=== PATIENT | female | born 1990 | race Caucasian/White ===

== ENCOUNTER 2023-10-02 20:00 | Emergency (ER) | payer BC, SELFPAY ==
[2023-10-02 20:10] VITALS: BP 155/95; PULSE 88; RESP 18; TEMP 36.2; O2SAT 97; BMI 37.8
--- NOTE | 2023-10-02 21:09 | ED_ITS ---
HPI - Neck Pain/Injury General Chief Complaint: Neck Injury/Pain Stated Complaint: neck and eye pain Time Seen by Provider: 10/02/23 20:41 History of Present Illness HPI Narrative: This 33-year-old female comes in reporting neck pain over the past 3 or 4 days. She does not report any injury event or strenuous activity. She states that she has had neck pain in the past and often has occipital tension type headaches. She also reports some tingling sensation extending into both arms and around her anterior neck. Related Data Home Medications Medication Instructions Recorded Confirmed amlodipine 5 mg tablet 5 mg PO DAILY 05/01/23 05/01/23 dextroamphetamine-amphetamine 20 1 tab PO DAILY 05/01/23 05/01/23 mg tablet dextroamphetamine-amphetamine 30 1 tab PO DAILY 05/01/23 05/01/23 mg tablet diclofenac sodium 1 % topical gel 1 ea topical QID 05/01/23 05/01/23 duloxetine 60 mg capsule,delayed 120 mg PO DAILY 05/01/23 05/01/23 release ferrous sulfate 325 mg (65 mg 325 mg PO DAILY 05/01/23 05/01/23 iron) tablet (FeroSul) hydroxyzine HCl 25 mg tablet 25 mg PO BID 05/01/23 05/01/23 metoprolol succinate 50 mg 50 mg PO DAILY 05/01/23 05/01/23 tablet,extended release 24 hr nortriptyline 10 mg capsule 10 mg PO QPM 05/01/23 05/01/23 valacyclovir 1 gram tablet 4,000 mg PO ONCE 05/01/23 05/01/23 Previous Rx's Medication Instructions Recorded methylprednisolone 4 mg tablets in See Rx Instructions PO .COMPLEX 10/02/23 a dose pack (Medrol (Jarrett)) #21 ea Allergies Allergy/AdvReac Type Severity Reaction Status Date / Time No Known Drug Allergies Allergy Verified 05/01/23 14:34 Review of Systems Status of ROS: Reports: 10 or more systems reviewed and unremarkable except as noted in History and below Narrative: Constitutional: No fevers, no weight gain or loss. Eyes: No discharge. No vision changes. HENT: No congestion, no sore throat, no ear pain. Cardiovascular: No chest pain, no palpitations. Respiratory: No shortness of breath, no wheezes, no cough. Gastrointestinal: No abdominal pain, no vomiting, no diarrhea. Genitourinary: No dysuria, no hematuria. Musculoskeletal: Normal range of motion. Decreased range of motion of her neck due to pain. Skin: No rashes, no pruritis. Neurological: No dizziness, weakness, sensory change, speech change. Endo/Heme/Allergies: No bruising or bleeding. No polydipsia. Pysch: no suicidality, no anxiety, no insomnia. All other systems reviewed and are negative. [facility] Medical History (Updated 10/02/23 @ 21:14 by Christopher Heller MD) Tonsillitis ?J03.90 - Acute tonsillitis, unspecified (ICD-10) Social History Smoking Status: Never smoker How often do you have a drink containing alcohol: 2-4 times a month How often do you have six or more drinks on one occasion: Never AUDIT-C Alcohol total score: 2 Non-prescribed substance use: denies use Exam Narrative: Exam Narrative: Constitutional: Well-developed, well-nourished, no acute distress. HEENT: Normocephalic, atraumatic. Neck: Decreased range of motion. No midline tenderness. Tenderness when palpating on either side of the nuchal ligament just below the occipital skull. Spurling's test is negative. Heart: Intact distal pulses. Lungs: No chest discomfort. No wheezes, rhonchi, or rales. Abdomen: Nontender. Back: Normal range of motion. Extremities: Normal range of motion. No injury. Skin: Intact. No rash. Warm. No erythema or pallor. Neurologic: No altered sensation. No weakness. Alert and oriented. Psychiatric: No suicidality. No anxiety or depression. No insomnia. Nursing notes and vitals signs are reviewed. Const: Vital Signs, click to edit/add: Vital Signs - 24 hr 10/02/23 20:10 Temperature 97.2 F L Pulse Rate [Pulse Oximeter] 88 Respiratory Rate 18 Blood Pressure [Ri ght Upper Arm] 155/95 H Pulse Oximetry 97 Oxygen Delivery Me thod Room Air Course Vital Signs Vital signs: Initial Vital Signs Temperature 97.2 F L 10/02/23 20:10 Temperature Source Temporal Artery Scan 10/02/23 20:10 Pulse Rate 88 10/02/23 20:10 Respiratory Rate 18 10/02/23 20:10 Blood Pressure 155/95 H 10/02/23 20:10 Blood Pressure Mean 115 H 10/02/23 20:10 Pulse Oximetry 97 10/02/23 20:10 Oxygen Delivery Method Room Air 10/02/23 20:10 Vital Signs Temperature 97.2 F L 10/02/23 20:10 Pulse Rate 88 10/02/23 20:10 Respiratory Rate 18 10/02/23 20:10 Blood Pressure 155/95 H 10/02/23 20:10 Pulse Oximetry 97 10/02/23 20:10 Oxygen Delivery Method Room Air 10/02/23 20:10 Temperature 97.2 F L 10/02/23 20:10 Pulse Rate 88 10/02/23 20:10 Respiratory Rate 18 10/02/23 20:10 Blood Pressure 155/95 H 10/02/23 20:10 Pulse Oximetry 97 10/02/23 20:10 Oxygen Delivery Method Room Air 10/02/23 20:10 MDM - Neck Pain/Injury MDM Narrative Medical decision making narrative: This patient did not have an injury event or mechanism of injury that mandates imaging at this time. She does not show any unilateral weakness but may be having some nerve impingement emanating from her neck. She was especially tender when palpating over the occipital nerve area on either side of the nuchal ligament. I did offer a therapeutic injection including methylprednisolone and lidocaine. The patient agreed to this. She did receive a total of 6 mL of 125 mg of methylprednisolone mixed with 1% lidocaine split equally on either side of the nuchal ligament. She also received prescriptions for Toradol, Flexeril, and Medrol Dosepak. Discharge Plan Discharge Clinical Impression: Headache, Neck pain Patient Disposition: Home, Self-Care Condition: Stable Additional Instructions: Take medication as needed and indicated. Increase activity as tolerated. Follow up with MD return if worsening. Prescriptions: New methylprednisolone [Medrol (Jarrett)] 4 mg tablets,dose pack See Rx Instructions .ROUTE .COMPLEX Qty: 21 0RF Rx Instructions: orally per package directions No Action dextroamphetamine-amphetamine 20 mg tablet 1 tab PO DAILY dextroamphetamine-amphetamine 30 mg tablet 1 tab PO DAILY diclofenac sodium 1 % gel 1 ea topical QID amlodipine 5 mg tablet 5 mg PO DAILY valacyclovir 1 gram tablet 4,000 mg PO ONCE metoprolol succinate 50 mg tablet extended release 24 hr 50 mg PO DAILY duloxetine 60 mg capsule,delayed release(DR/EC) 120 mg PO DAILY hydroxyzine HCl 25 mg tablet 25 mg PO BID nortriptyline 10 mg capsule 10 mg PO QPM ferrous sulfate [FeroSul] 325 mg (65 mg iron) tablet 325 mg PO DAILY Follow Up/Referrals: Provider,Not a Local [Primary Care Provider] - Stand Alone Forms: Project Manager Info Instructions
[2023-10-02 21:32] VITALS: BP 146/100; PULSE 75; RESP 16; O2SAT 99
[2023-10-02] MEDS: LIDOCAINE 1 % PF 30 ML INJECTION (21:33)
[2023-10-02] MEDS: METHYLPREDNISOLONE SOD SUCC 62.5 MG/ML (125) 125 MG IM (21:33)
== END 2023-10-02 21:36 | disposition home or self-care (01) ==
PROVIDERS: Emergency Provider Emergency Medicine Emergency Medical Services; PCP Family Medicine
DX: M54.2 Cervicalgia (principal); R51.9 Headache, unspecified
CPT/HCPCS: 96372; 99284; J2001; J2930

== ENCOUNTER 2024-09-07 17:00 | Emergency (ER) | payer BC, SELFPAY ==
[2024-09-07 17:06] VITALS: BP 168/106; PULSE 74; RESP 18; TEMP 36.2; O2SAT 99; BMI 38.4
[2024-09-07] MEDS: ONDANSETRON ODT 4 MG TAB 8 MG PO (18:31)
[2024-09-07 19:01] LABS: Basophils Percent Auto 0.3 % (0.0-3.0); Chloride* 99 mmol/L (96-114); Eosinophils Percent Auto 0.6 % (0.0-7.0); Hematocrit 39.5 % (33.0-51.0); Hemoglobin* 13.5 gm/dL (12.0-16.0); Immature Granulocytes Pct Auto 0.2 %; Mean Corpuscular HGB Conc 34 gm/dL (32-36); Mean Corpuscular Hemoglobin 31 pg (26-34); Mean Corpuscular Volume 90 fL (80-100); Monocytes Percent Auto 7.1 % (0.0-11.0); Neutrophils Percent Auto 65.8 % (42.0-72.0); Platelet Count* 419 K/uL (140-440); RDW Coefficient of Variation % 12.3 % (11.5-15.5); Red Blood Count 4.39 m/uL (4.00-5.20); Sodium* 136 mmol/L (135-149); White Blood Count* 11.56 K/uL (4.50-11.00)
[2024-09-07 19:03] LABS: Creatinine* 0.6 mg/dL (0.5-1.5); Est. Creatinine Clearance* 178.05; Estimated Glomerular Filt Rate 120 ml/min
[2024-09-07 19:04] LABS: Anion Gap 13 mEq/L (7-15); Blood Urea Nitrogen* 8 mg/dL (5-24); Calcium* 8.9 mg/dL (8.4-10.6); Carbon Dioxide* 24 mmol/L (20-32); Glucose* 102 mg/dL (60-115)
--- NOTE | 2024-09-07 19:05 | ED_ITS ---
HPI - Nausea/Vomiting/Diarrhea General Chief complaint: Nausea/Vomiting Stated complaint: Vomiting post tonsillectomy 5 days ago Time Seen by Provider: 09/07/24 18:48 History of Present Illness HPI Narrative: This 34-year-old female had tonsillectomy done 5 days ago and comes in today be cause of nausea and 1 vomiting episode. She is continuing to take oxycodone, Tylenol, and ibuprofen. She states that her sore throat pains have improved a bit recently but she was concerned about her vomiting episode. She does not report any fevers. There was no blood in the vomit. Related Data Home Medications ?Medication ?Instructions ?Recorded ?Confirmed amlodipine 5 mg tablet 5 mg PO DAILY 05/01/23 09/07/24 dextroamphetamine-amphetamine 20 1 tab PO DAILY 05/01/23 09/07/24 mg tablet dextroamphetamine-amphetamine 30 1 tab PO DAILY 05/01/23 09/07/24 mg tablet diclofenac sodium 1 % topical gel 1 ea topical QID 05/01/23 09/07/24 duloxetine 60 mg capsule,delayed 120 mg PO DAILY 05/01/23 09/07/24 release ferrous sulfate 325 mg (65 mg 325 mg PO DAILY 05/01/23 09/07/24 iron) tablet (FeroSul) hydroxyzine HCl 25 mg tablet 25 mg PO BID 05/01/23 09/07/24 metoprolol succinate 50 mg 50 mg PO DAILY 05/01/23 09/07/24 tablet,extended release 24 hr nortriptyline 10 mg capsule 10 mg PO QPM 05/01/23 09/07/24 valacyclovir 1 gram tablet 4,000 mg PO ONCE 05/01/23 05/01/23 losartan 25 mg tablet 25 mg PO DAILY 09/07/24 09/07/24 oxycodone 5 mg/5 mL oral solution PO 09/07/24 Previous Rx's ?Medication ?Instructions ?Recorded methylprednisolone 4 mg tablets in See Rx Instructions PO .COMPLEX 10/02/23 a dose pack (Medrol (Jarrett)) #21 ea Allergies Allergy/AdvReac Type Severity Reaction Status Date / Time No Known Drug Allergies Allergy Verified 05/01/23 14:34 Review of Systems Status of ROS: Reports: 10 or more systems reviewed and unremarkable except as noted in History and below Narrative: Constitutional: No fevers, no weight gain or loss. Eyes: No discharge. No vision changes. HENT: No congestion, no ear pain. Sore throat from tonsillectomy done 5 days ago. Cardiovascular: No chest pain, no palpitations. Respiratory: No shortness of breath, no wheezes, no cough. Gastrointestinal: No abdominal pain, no diarrhea. Genitourinary: No dysuria, no hematuria. Musculoskeletal: Normal range of motion. Skin: No rashes, no pruritis. Neurological: No dizziness, weakness, sensory change, speech change. Endo/Heme/Allergies: No bruising or bleeding. No polydipsia. Pysch: no suicidality, no anxiety, no insomnia. All other systems reviewed and are negative. [facility] Medical History (Updated 09/07/24 @ 20:01 by Christopher Heller MD) Tonsillitis ?J03.90 - Acute tonsillitis, unspecified (ICD-10) Social History Smoking Status: Never smoker How often do you have a drink containing alcohol: 2-4 times a month How often do you have six or more drinks on one occasion: Never AUDIT-C Alcohol total score: 2 Non-prescribed substance use: denies use Exam Narrative: Exam Narrative: Constitutional: Well-developed, well-nourished, no acute distress. HEENT: Normocephalic, atraumatic. Oropharynx shows typical recovery scarring from tonsillectomy with no sign of bleeding. Neck: Normal range of motion. Nontender. Supple. Heart: Regular. No murmurs. Normal rate. Intact distal pulses. Lungs: Clear to auscultation. No chest discomfort. No wheezes, rhonchi, or rales. Abdomen: Normal bowel sounds. Nontender. No rebound tenderness. Genitalia: Deferred. Back: No midline tenderness. Normal range of motion. Extremities: Normal range of motion. No injury. Skin: Intact. No rash. Warm. No erythema or pallor. Neurologic: No altered sensation. No weakness. Alert and oriented. Psychiatric: No suicidality. No anxiety or depression. No insomnia. Nursing notes and vitals signs are reviewed. Const: Vital Signs, click to edit/add: Vital Signs - 24 hr 09/07/24 17:06 Temperature 97.2 F L Pulse Rate [Pulse Oximeter] 74 Respiratory Rate 18 Blood Pressure [Ri ght Upper Arm] 168/106 H Pulse Oximetry 99 Oxygen Delivery Me thod Room Air Course Vital Signs Vital signs: Initial Vital Signs Temperature 97.2 F L 09/07/24 17:06 Temperature Source Temporal Artery Scan 09/07/24 17:06 Pulse Rate 74 09/07/24 17:06 Pulse Rhythm Regular 09/07/24 17:06 Respiratory Rate 18 09/07/24 17:06 Blood Pressure 168/106 H 09/07/24 17:06 Blood Pressure Mean 126 H 09/07/24 17:06 Blood Pressure Position Sitting 09/07/24 17:06 Pulse Oximetry 99 09/07/24 17:06 Oxygen Delivery Method Room Air 09/07/24 17:06 Vital Signs Temperature 97.2 F L 09/07/24 17:06 Pulse Rate 74 09/07/24 17:06 Respiratory Rate 18 09/07/24 17:06 Blood Pressure 168/106 H 09/07/24 17:06 Pulse Oximetry 99 09/07/24 17:06 Oxygen Delivery Method Room Air 09/07/24 17:06 Temperature 97.2 F L 09/07/24 17:06 Pulse Rate 74 09/07/24 17:06 Respiratory Rate 18 09/07/24 17:06 Blood Pressure 168/106 H 09/07/24 17:06 Pulse Oximetry 99 09/07/24 17:06 Oxygen Delivery Method Room Air 09/07/24 17:06 Medications Administered Medications: Generic Name Dose Route Start Last Admin Trade Name Freq PRN Reason Stop Dose Admin Sodium Chloride 500 mls @ 500 mls/hr 09/07/24 19:06 09/07/24 19:37 0.9 % Sodium Chloride 500 Ml IV 09/07/24 20:05 500 mls/hr .Q1H ONE Administration Ketorolac Tromethamine 15 mg 09/07/24 19:06 09/07/24 19:37 Ketorolac 30 Mg/Ml Inj IVP 09/07/24 19:07 15 mg ONCE ONE Administration Ondansetron HCl 4 mg 09/07/24 19:06 09/07/24 19:15 Ondansetron 2 Mg/Ml Inj IVP 09/07/24 19:07 Not Given ONCE ONE Discontinued Medications Generic Name Dose Route Start Last Admin Trade Name Freq PRN Reason Stop Dose Admin Ondansetron HCl 8 mg 09/07/24 17:30 09/07/24 18:31 Ondansetron Odt 4 Mg Tab PO 09/07/24 17:31 8 mg ONCE ONE Administration MDM - Nausea/Vomiting/Diarrhea MDM Narrative Medical decision making narrative: This patient comes in reporting generalized malaise and has throat pain after having a tonsillectomy 5 days ago. She also had some nausea with 1 episode of vomiting. I did discuss lab and imaging options and treatment options with the patient. She did prefer to have an IV placed despite reassuring vital signs. She did receive 500 mL of normal saline along with 15 mg of Toradol. She also received Zofran 8 mg orally upon arrival. She states that she is feeling better. Lab results returned with reassuring findings. She is okay to be discharged home and has medicines that she can take as directed for pain. I did provide [facility] prescription for Zofran. Lab Data Labs: Lab Results 09/07/24 Range/Units 18:35 WBC 11.56 H (4.50-11.00) K/uL RBC 4.39 (4.00-5.20) m/uL Hgb 13.5 (12.0-16.0) gm/dL Hct 39.5 (33.0-51.0) % MCV 90 (80-100) fL MCH 31 (26-34) pg MCHC 34 (32-36) gm/dL RDW Coeff of Duarte 12.3 (11.5-15.5) % Plt Count 419 (140-440) K/uL Neut % (Auto) 65.8 (42.0-72.0) % Lymph % (Auto) 26.0 (20-44) % [place] % (Auto) 7.1 (0.0-11.0) % Eos % (Auto) 0.6 (0.0-7.0) % Baso % (Auto) 0.3 (0.0-3.0) % Neut # (Auto) 7.60 H (1.7-7.0) K/uL Lymph # (Auto) 3.00 H (0.90-2.90) K/uL [place] # (Auto) 0.80 (0.00-0.90) K/UL Eos # (Auto) 0.10 (0.00-0.50) K/uL Baso # (Auto) 0.00 (0.00-0.30) K/uL Abs Immat Gran (auto) 0.00 (0.00-0.30) K/uL Imm/Tot Granulo (auto) 0.2 % Sodium 136 (135-149) mmol/L Potassium 3.0 L (3.6-5.1) mmol/L Chloride 99 (96-114) mmol/L Carbon Dioxide 24 (20-32) mmol/L Anion Gap 13 (7-15) mEq/L BUN 8 (5-24) mg/dL Creatinine 0.6 (0.5-1.5) mg/dL Estimated Creat Clear 178.05 Estimated GFR 120 ml/min Glucose 102 (60-115) mg/dL Calcium 8.9 (8.4-10.6) mg/dL Magnesium 2.0 (1.5-2.6) mg/dL Discharge Plan Discharge Clinical Impression: Vomiting Additional Instructions: Continue current plans. Take Zofran as needed and directed for nausea symptoms. Follow up with MD return if worsening. Prescriptions: No Action dextroamphetamine-amphetamine 20 mg tablet 1 tab PO DAILY dextroamphetamine-amphetamine 30 mg tablet 1 tab PO DAILY diclofenac sodium 1 % gel 1 ea topical QID amlodipine 5 mg tablet 5 mg PO DAILY valacyclovir 1 gram tablet 4,000 mg PO ONCE metoprolol succinate 50 mg tablet extended release 24 hr 50 mg PO DAILY duloxetine 60 mg capsule,delayed release(DR/EC) 120 mg PO DAILY hydroxyzine HCl 25 mg tablet 25 mg PO BID nortriptyline 10 mg capsule 10 mg PO QPM ferrous sulfate [FeroSul] 325 mg (65 mg iron) tablet 325 mg PO DAILY methylprednisolone [Medrol (Jarrett)] 4 mg tablets,dose pack See Rx Instructions .ROUTE .COMPLEX Qty: 21 0RF Rx Instructions: orally per package directions oxycodone 5 mg/5 mL solution PO losartan 25 mg tablet 25 mg PO DAILY Follow Up/Referrals: Linda Barros DO [Primary Care Provider] -
[2024-09-07] MEDS: 0.9 % SODIUM CHLORIDE 500 ML 500 ML IV (19:37)
[2024-09-07] MEDS: KETOROLAC 30 MG/ML inj 15 MG IVP (19:37)
[2024-09-07 19:43] LABS: Slide Review Reflex No
[2024-09-07 20:33] VITALS: BP 168/106; PULSE 74; RESP 18; TEMP 36.2
== END 2024-09-07 20:30 | disposition home or self-care (01) ==
PROVIDERS: Family Medicine; Emergency Provider Emergency Medicine Emergency Medical Services; PCP Family Medicine
DX: R11.10 Vomiting, unspecified (principal)
CPT/HCPCS: 36415; 80048; 83735; 85025; 96374; 99283; 99284; A9270; J1885; J7030

== ENCOUNTER 2025-04-29 16:32 | Outpatient (CLI) | payer BC, SELFPAY | END 2025-04-29 16:33 | disposition home or self-care (01) | LOC: NFLDREF 05-03 01:42 | PROVIDERS: PCP Family Medicine; Referring Provider Family Medicine; Visit Provider Physician Assistant | DX: M54.9 Dorsalgia, unspecified (principal) | CPT/HCPCS: 87086 ==